=== PATIENT | female | born 2005 | race Caucasian/White ===

== ENCOUNTER 2025-05-03 16:46 | Emergency (ER) | payer MEDICAID ==
[2025-05-03] MEDS: Iopamidol 612 MG/ML 100 ML Bottle IVPUSH ONE (17:48)
== END 2025-05-03 18:55 | disposition home or self-care (01) ==
LOC: VM.ED 16:46
DX: N20.0 Calculus of kidney (principal); Z79.899 Other long term (current) drug therapy
CPT/HCPCS: 81025; 83690; 99284; Q9967; 36415; 74177